=== PATIENT | male | born 1965 | race American Indian/Alaskan Native ===

== ENCOUNTER 2017-08-04 18:34 | Emergency (ER) | payer OTHER | END 2017-08-04 18:52 | disposition left against medical advice (07) | LOC: DL.ED 18:34 | DX: Z53.21 Procedure and treatment not carried out due to patient leaving prior to being seen by health care provider (principal) ==

== ENCOUNTER 2018-05-06 19:44 | Emergency (ER) | payer OTHER ==
[2018-05-06] MEDS ORDERED: Silver Nitrate Applicator Each ONE (20:37)
[2018-05-06 20:48] LABS: ANION GAP 13.4; CHLORIDE,CL 111 mmol/L (101-111); SODIUM,NA 144 mmol/L (135-145)
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
== END 2018-05-06 23:15 ==
LOC: DL.ED 19:44
DX: S01.81XA Laceration without foreign body of other part of head, initial encounter (principal); S06.9X9A Unspecified intracranial injury with loss of consciousness of unspecified duration, initial encounter; X99.1XXA Assault by knife, initial encounter; F10.129 Alcohol abuse with intoxication, unspecified; Y90.8 Blood alcohol level of 240 mg/100 ml or more
CPT/HCPCS: 12011; 36415; 70450; 70486; 71045; 72125; 80053; 80305; 81001; 82962; 85025; 96360; 96361; 99284; 99285; G0480

== ENCOUNTER 2018-11-18 17:21 | Emergency (ER) | payer MEDICAID, OTHER ==
[2018-11-18] MEDS ORDERED: Ketorolac 30 MG/ML SDV IM ONE (18:40)
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
[2018-11-18] MEDS ORDERED: Lidocaine 5% Oint 35.44 GM Tube TOP ONE (18:42)
== END 2018-11-18 19:17 | disposition home or self-care (01) ==
LOC: DL.ED 17:21
DX: S20.211A Contusion of right front wall of thorax, initial encounter (principal); I10 Essential (primary) hypertension; F10.20 Alcohol dependence, uncomplicated; Z79.899 Other long term (current) drug therapy; Z88.0 Allergy status to penicillin; Z87.891 Personal history of nicotine dependence; Z04.71 Encounter for examination and observation following alleged adult physical abuse; Z91.19 Patient's noncompliance with other medical treatment and regimen
CPT/HCPCS: 71101; 96372; 99283; A9270; J1885

== ENCOUNTER 2021-07-05 12:23 | Emergency (ER) | payer SELFPAY ==
[~2021-07-05 12:23] MED LIST: MVI, Adult with Vitamin K 10 ML, Folic Acid 1 MG, Thiamine 100 MG in Lactated Ringers 1... IV ONE; fentaNYL 100 MCG/2 ML SDV IVPUSH ONE
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
[2021-07-05] MEDS ORDERED: fentaNYL 100 MCG/2 ML SDV IVPUSH PRN (13:26)
[2021-07-05 13:27] LABS: ANION GAP 15.6 mEq/L (7-13); CHLORIDE,CL 107 mmol/L (98-107); SODIUM,NA 141 mmol/L (136-145)
--- NOTE | 2021-07-05 14:02 | CR ---
PROCEDURE INFORMATION: Exam: XR Chest Exam date and time: 07/05/2021 12:18 PM Age: 56 years old Clinical indication: Pain; Left-sided; Additional info: Left lat rib pain TECHNIQUE: Imaging protocol: XR of the chest. Views: 1 view. COMPARISON: CR Ribs 2V w Chest Rt 11/18/2018 5:47 PM FINDINGS: Lungs: Unremarkable. No consolidation. Pleural spaces: Unremarkable. No pleural effusion. No pneumothorax. Heart/Mediastinum: Unremarkable. No cardiomegaly. Bones/joints: Right posterior chronic rib fractures. Acute fracture of the left 5th rib laterally. IMPRESSION: Acute fracture of the left 5th rib laterally.
[2021-07-05] MEDS ORDERED: Iopamidol 612 MG/ML 100 ML Bottle IVPUSH ONE (14:16)
[2021-07-05] MEDS ORDERED: Iopamidol 612 MG/ML 50 ML SDV IVPUSH ONE (14:16)
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
[2021-07-05] MEDS ORDERED: Acetaminophen/HYDROcodone 325-5 MG Tab ONE (15:17)
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
[2021-07-05 16:24] LABS: AMPHETAMINES,URINE NEGATIVE (NEGATIVE); BARBITURATES,URINE NEGATIVE (NEGATIVE); BENZODIAZEPINE,URINE NEGATIVE (NEGATIVE); MDMA (ECSTASY), URINE NEGATIVE (NEGATIVE); METHADONE,URINE NEGATIVE (NEGATIVE); METHAMPHETAMINES,URINE NEGATIVE (NEGATIVE); OPIATES,URINE NEGATIVE (NEGATIVE); OXYCODONE,URINE NEGATIVE (NEGATIVE); PHENCYCLIDINE,URINE NEGATIVE (NEGATIVE); TCA,URINE NEGATIVE (NEGATIVE)
== END 2021-07-05 17:05 | disposition home or self-care (01) ==
LOC: DL.ED 12:23
DX: S22.42XA Multiple fractures of ribs, left side, initial encounter for closed fracture (principal); S80.212A Abrasion, left knee, initial encounter; S80.211A Abrasion, right knee, initial encounter; F10.129 Alcohol abuse with intoxication, unspecified; I10 Essential (primary) hypertension; Z88.0 Allergy status to penicillin; Y90.8 Blood alcohol level of 240 mg/100 ml or more; Y04.0XXA Assault by unarmed brawl or fight, initial encounter
CPT/HCPCS: 36415; 70450; 71045; 71260; 74177; 80053; 80305; 80307; 81003; 82150; 83690; 85025; 96365; 96375; 99284; J3010; J3411; J7120; Q9967; J3490